=== PATIENT | female | born 1960 | race African-American/Black ===

== ENCOUNTER 2023-04-06 15:09 | Emergency (ER) | payer OTHER ==
[2023-04-06 15:40] VITALS: TEMP 98.5; BMI 24.2
[2023-04-06] MEDS: SODIUM CHLORIDE 0.9% 500 ML INFUS.BAG IV ONE (17:37)
[2023-04-06 18:08] LABS: POTASSIUM 4.3 mmol/L (3.5-5.1)
[2023-04-06 18:09] LABS: BASO % 0.3 % (0-2.0); HEMATOCRIT 45.6 % (32.4-45.2); HEMOGLOBIN 13.6 GM/dL (10.7-15.3); LYMPH % 18.4 % (8-40); MCH 20.1 pg (25.7-33.7); MCHC 29.9 g/dl (32.0-36.0); MEAN CELL VOLUME 67.2 fl (80-96); MONO % 6.5 % (3.8-10.2); NEUT % 72.8 % (42.8-82.8); RBC 6.79 M/mm3 (3.60-5.2); RDW 27.4 % (11.6-15.6); WHITE BLOOD COUNT 6.7 K/mm3 (4.0-10.0)
[2023-04-06 18:10] LABS: ALBUMIN 3.3 g/dl (3.4-5.0); BLOOD UREA NITROGEN 13.6 mg/dL (7-18); CALCIUM 8.6 mg/dL (8.5-10.1); MAGNESIUM 1.9 mg/dL (1.8-2.4)
[2023-04-06 18:13] LABS: CREATININE 0.8 mg/dL (0.55-1.3); PHOSPHOROUS 3.6 mg/dL (2.5-4.9)
[2023-04-06 18:15] LABS: BILIRUBIN,TOTAL 0.6 mg/dL (0.2-1); TOT PROT 6.4 g/dl (6.4-8.2)
[2023-04-06 18:51] LABS: ANISOCYTOSIS 3+; MACROCYTOSIS 0; OVALOCYTE 1+; PLATELET COUNT 155 10^3/uL (134-434); TARGET CELLS 1+
[2023-04-06 21:28] VITALS: BP 121/74; PULSE 116; RESP 20
== END 2023-04-06 21:29 | disposition home or self-care (01) ==
LOC: JER 15:09
DX: M79.605 Pain in left leg (principal); R29.898 Other symptoms and signs involving the musculoskeletal system
CPT/HCPCS: 36415; 80053; 83735; 84100; 85025; 93005; 93010; 93970-TC; 99284-25

== ENCOUNTER 2023-09-17 01:12 | Inpatient (IN) | payer OTHER ==
[2023-09-17] MEDS ORDERED: ALBUTEROL SO4 2.5/IPRATROPIUM 0.5 INH SOL 3 ML VIAL.NEB. NEB ONE (01:28)
[2023-09-17] MEDS ORDERED: methylPREDNISolone NA SUCC 125 MG/2 ML VIAL ONE ×2 (01:29→09:23)
[2023-09-17] MEDS: ALBUTEROL SO4 2.5/IPRATROPIUM 0.5 INH SOL 3 ML VIAL.NEB. NEB SCH (01:50)
[2023-09-17] MEDS: methylPREDNISolone NA SUCC 125 MG/2 ML VIAL IVPUSH ONE (01:50)
[2023-09-17 01:54] LABS: BASO % 0.2 % (0-2.0); EOS % 0.4 % (0-4.5); HEMATOCRIT 51.2 % (32.4-45.2); HEMOGLOBIN 16.5 GM/dL (10.7-15.3); LYMPH % 9.6 % (8-40); MCH 27.8 pg (25.7-33.7); MCHC 32.3 g/dl (32.0-36.0); MEAN CELL VOLUME 86.3 fl (80-96); MEAN PLT VOLUME 9.3 fl (7.5-11.1); MONO % 4.7 % (3.8-10.2); NEUT % 85.1 % (42.8-82.8); PLATELET COUNT 177 10^3/uL (134-434); RBC 5.93 M/mm3 (3.60-5.2); WHITE BLOOD COUNT 7.5 K/mm3 (4.0-10.0)
[2023-09-17 02:00] LABS: ARTERIAL BLD GAS O2 SATURATION 84.5 % (95-98); ARTERIAL BLOOD GAS BASE EXCESS 2.1 mmol/L (-2-2); ARTERIAL BLOOD GAS pH 7.314 (7.350-7.450)
[2023-09-17 02:01] LABS: ALLENS TEST POSITIVE
[2023-09-17 02:06] LABS: INR 1.1 (0.83-1.09); PROTHROMBIN TIME (PATIENT) 12.6 SEC (9.7-13.0)
[2023-09-17 02:09] LABS: ACTIVATED PTT 24.2 SECONDS (25.2-36.5)
[2023-09-17 02:24] LABS: POTASSIUM 4.7 mmol/L (3.5-5.1)
[2023-09-17 02:25] LABS: CALCIUM 9.5 mg/dL (8.5-10.1)
[2023-09-17 02:26] LABS: ALBUMIN 3.6 g/dl (3.4-5.0)
[2023-09-17 02:29] LABS: CREATININE 0.8 mg/dL (0.55-1.3)
[2023-09-17 02:31] LABS: BILIRUBIN,TOTAL 0.6 mg/dL (0.2-1); TOT PROT 7.1 g/dl (6.4-8.2)
[2023-09-17] MEDS ORDERED: AZITHROMYCIN IVPB 500 MG/250 ML BAG IVPB ONE ×2 (03:45→09:24)
[2023-09-17] MEDS: SODIUM CHLORIDE 0.9% 500 ML INFUS.BAG IV ONE (04:09)
[2023-09-17] MEDS: AZITHROMYCIN IVPB 500 MG in DEXTROSE 5%-WATER - 250 ML IVPB ONE (04:15)
[2023-09-17] MEDS ORDERED: DOCUSATE SODIUM 100 MG CAPSULE (FP) PO PRN (06:04)
[2023-09-17] MEDS ORDERED: ALBUTEROL SO4 2.5/IPRATROPIUM 0.5 INH SOL 3 ML VIAL.NEB. NEB PRN (06:27)
[2023-09-17 06:45] LABS: MAGNESIUM 1.7 mg/dL (1.8-2.4)
[2023-09-17 06:49] LABS: PHOSPHOROUS 3.4 mg/dL (2.5-4.9)
[2023-09-17] MEDS: amLODIPine BESYLATE 5 MG TABLET (FP) PO ONE (06:52)
[2023-09-17] MEDS: LEVOTHYROXINE NA 25 MCG TABLET (FP) PO SCH (06:52)
[2023-09-17 06:53] LABS: N-TERMINAL BNP 906.9 pg/ml (5-125)
[2023-09-17] MEDS ORDERED: methaDONE HCL 10 MG TABLET ONE (09:23)
[2023-09-17] MEDS ORDERED: ENOXAPARIN NA (PORCINE) 40 MG/0.4 ML DISP.SYRIN SQ ONE (09:24)
[2023-09-17] MEDS: methaDONE HCL 10 MG TABLET PO ONE (09:33)
[2023-09-17] MEDS: ENOXAPARIN NA (PORCINE) 40 MG/0.4 ML DISP.SYRIN SQ SCH (09:33)
[2023-09-17] MEDS: methylPREDNISolone NA SUCC 40 MG/1 ML VIAL IVPUSH SCH (09:33)
[2023-09-17] MEDS: AZITHROMYCIN IVPB 500 MG/250 ML BAG IVPB SCH (09:34)
[2023-09-17 15:28] VITALS: RESP 18
[2023-09-17] MEDS ORDERED: methylPREDNISolone NA SUCC 40 MG/1 ML VIAL ONE (18:54)
[2023-09-17] MEDS ORDERED: ATORVASTATIN CA 20 MG TABLET (FP) ONE (22:14)
[2023-09-17] MEDS ORDERED: MONTELUKAST NA 10 MG TABLET ONE (22:14)
[2023-09-17] MEDS: MONTELUKAST NA 10 MG TABLET PO SCH (22:23)
[2023-09-17] MEDS: ATORVASTATIN CA 20 MG TABLET (FP) PO SCH (22:23)
[2023-09-17] MEDS: DOXEPIN HCL 50 MG CAPSULE PO SCH (22:41)
[2023-09-18] MEDS: ACETAMINOPHEN 325 MG TABLET (FP) PO PRN (00:13)
[2023-09-18 00:54] VITALS: BMI 22.8
[2023-09-18 08:27] LABS: BASO % 0.3 % (0-2.0); HEMATOCRIT 52.2 % (32.4-45.2); HEMOGLOBIN 16.7 GM/dL (10.7-15.3); LYMPH % 13.1 % (8-40); MCH 27.6 pg (25.7-33.7); MCHC 32.1 g/dl (32.0-36.0); MEAN CELL VOLUME 86.1 fl (80-96); MEAN PLT VOLUME 9.6 fl (7.5-11.1); MONO % 4.3 % (3.8-10.2); NEUT % 82.3 % (42.8-82.8); PLATELET COUNT 166 10^3/uL (134-434); RBC 6.06 M/mm3 (3.60-5.2); RDW 17.8 % (11.6-15.6); WHITE BLOOD COUNT 4.8 K/mm3 (4.0-10.0)
[2023-09-18 08:33] LABS: POTASSIUM 4.3 mmol/L (3.5-5.1)
[2023-09-18 08:35] LABS: CALCIUM 9.3 mg/dL (8.5-10.1)
[2023-09-18 08:39] LABS: CREATININE 0.5 mg/dL (0.55-1.3)
[2023-09-18 08:46] LABS: N-TERMINAL BNP 2538.1 pg/ml (5-125)
[2023-09-18] MEDS: FUROSEMIDE 40 MG/4 ML INJECTABLE VIAL IVPUSH SCH (12:20)
[2023-09-18] MEDS: CEFTRIAXONE 2 GM in DEXTROSE 5%-WATER 100 ML IVPB SCH (12:20)
[2023-09-18] MEDS: ASPIRIN 81 MG CHEWABLE TABLETS PO ONE (12:20)
[2023-09-18] MEDS: ALBUTEROL SO4 2.5/IPRATROPIUM 0.5 INH SOL 3 ML VIAL.NEB. NEB SCH (16:17)
[2023-09-18] MEDS: methaDONE HCL 10 MG TABLET PO SCH (18:29)
[2023-09-18] MEDS: DOXEPIN HCL 25 MG CAPSULE PO SCH (22:22)
[2023-09-19] MEDS: ASPIRIN COATED 81 MG TABLET.EC PO SCH (11:26)
[2023-09-19 16:15] LABS: HIV INTERPRETATION NEGATIVE (NEGATIVE)
[2023-09-19] MEDS: LISINOPRIL 5 MG TABLET PO SCH (18:21)
[2023-09-19] MEDS: ATORVASTATIN CA 40 MG TABLET (FP) PO SCH (22:23)
[2023-09-20 06:53] LABS: BASO % 0.2 % (0-2.0); HEMOGLOBIN 17.1 GM/dL (10.7-15.3); LYMPH % 10.4 % (8-40); MCH 27.7 pg (25.7-33.7); MCHC 31.7 g/dl (32.0-36.0); MEAN CELL VOLUME 87.5 fl (80-96); MEAN PLT VOLUME 9.1 fl (7.5-11.1); MONO % 3.7 % (3.8-10.2); NEUT % 85.7 % (42.8-82.8); PLATELET COUNT 180 10^3/uL (134-434); RBC 6.17 M/mm3 (3.60-5.2); RDW 17.2 % (11.6-15.6); WHITE BLOOD COUNT 5.5 K/mm3 (4.0-10.0)
[2023-09-20 07:19] LABS: CREATININE 0.5 mg/dL (0.55-1.3)
[2023-09-20 07:20] LABS: ALBUMIN 3.5 g/dl (3.4-5.0); BLOOD UREA NITROGEN 13.6 mg/dL (7-18); CALCIUM 8.8 mg/dL (8.5-10.1)
[2023-09-20 07:21] LABS: BILIRUBIN,TOTAL 0.5 mg/dL (0.2-1); TOT PROT 7.2 g/dl (6.4-8.2)
[2023-09-20] MEDS: AZITHROMYCIN 250 MG TABLET PO SCH (10:04)
[2023-09-21] MEDS: SPIRONOLACTONE 25 MG TABLET PO SCH (13:35)
[2023-09-21] MEDS: EMPAGLIFLOZIN (JARDIANCE) 10 MG TABLET PO SCH (14:51)
[2023-09-21] MEDS: ATORVASTATIN CA 40 MG TABLET (FP) PO SCH (21:52)
[2023-09-22 09:48] VITALS: BP 116/88; PULSE 87; TEMP 97.7
[2023-09-22] MEDS ORDERED: SACUBITRIL/VALSARTAN 24 MG-26 MG TABLET PO SCH (22:00)
== END 2023-09-22 14:56 | disposition short-term general hospital (02) | DRG 133 ==
LOC: JER 01:12 → OBSVTOIN 05:30 → JERBED 05:30 → J4S 23:24
PROVIDERS: ADMIT Internal Medicine; ATTEND Internal Medicine
DX: J96.22 Acute and chronic respiratory failure with hypercapnia (principal); I11.0 Hypertensive heart disease with heart failure; J96.21 Acute and chronic respiratory failure with hypoxia; I50.23 Acute on chronic systolic (congestive) heart failure; J44.1 Chronic obstructive pulmonary disease with (acute) exacerbation; J44.0 Chronic obstructive pulmonary disease with (acute) lower respiratory infection; J18.9 Pneumonia, unspecified organism; K59.00 Constipation, unspecified; J45.909 Unspecified asthma, uncomplicated; F19.10 Other psychoactive substance abuse, uncomplicated; E78.5 Hyperlipidemia, unspecified; F17.210 Nicotine dependence, cigarettes, uncomplicated; I27.20 Pulmonary hypertension, unspecified; I24.89 Other forms of acute ischemic heart disease
CPT/HCPCS: 0241U-QW; 36415; 36600; 71045-TC-FY; 71046-TC-FY; 80048; 80053; 80061; 82803; 83036; 83605; 83735; 83880; 84100; 84439; 84443; 84484; 85025; 85610; 85730; 87040; 87070; 87205; 87389; 87899; 93005; 93010; 93306-TC; 93970-TC; 94640; 99285-25